=== PATIENT | male | born 1985 | race Caucasian/White ===

== ENCOUNTER → 2021-08-23 09:37 | Outpatient (CLI) | payer OTHER, SELFPAY ==
[2021-08-23 11:53] LABS: COVID19 -Nasal RAPID POSITIVE (Negative)
== END ==
PROVIDERS: PCP Internal Medicine; Visit Provider Nurse Practitioner
DX: U07.1 COVID-19 (principal)
CPT/HCPCS: 87635

== ENCOUNTER 2022-05-25 17:08 | Emergency (ER) | payer OTHER, SELFPAY ==
[2022-05-25 17:11] VITALS: BP 155/84; PULSE 63; RESP 18; TEMP 35.9; O2SAT 100; BMI 31.4
== END 2022-05-25 17:44 | disposition left against medical advice (07) ==
PROVIDERS: Emergency Provider Family Medicine Addiction Medicine; PCP Internal Medicine
CPT/HCPCS: 99281

== ENCOUNTER 2022-12-26 08:58 | Emergency (ER) | payer OTHER, SELFPAY ==
[2022-12-26 09:22] VITALS: BP 168/84; PULSE 71; RESP 19; TEMP 36.2; O2SAT 99; BMI 32.1
[2022-12-26 09:38] LABS: Basophils Absolute Auto 0 /uL (0-100); Eosinophils Absolute Auto 100 /uL (0-450); Eosinophils Percent Auto 2.1 % (2-4); Monocytes Absolute Auto 500 /uL (0-900); White Blood Cell Count 6.5 X10^3/uL (4.5-11.0)
[2022-12-26 09:47] LABS: Add Manual Diff / Slide Review NO; Basophils Percent Auto 0.5 % (0-2); Hematocrit 42.8 % (41-53); Hemoglobin 15.3 g/dL (13.5-17.5); Lymphocytes Absolute Auto 1500 /uL (1100-4500); Lymphocytes Percent Auto 22.5 % (25-40); Mean Corpuscular HGB Conc 35.8 % (30-36); Mean Corpuscular Hemoglobin 30.3 PG (26-34); Mean Corpuscular Volume 84.7 fL (80-100); Neutrophils Absolute Auto 4300 /uL (1500-7000); Neutrophils Percent Auto 66.9 % (50-75); Platelet Count 129 X10^3/uL (150-400); Red Blood Cell Count 5.06 X10^6/uL (4.5-5.9); Red Cell Distribution Width 13.1 % (11.6-14.8)
[2022-12-26 09:48] LABS: INR 1.1 (0.9-1.3); Prothrombin Time 12.3 SECONDS (10.1-12.7)
--- NOTE | 2022-12-26 09:50 | PC.NURSE ---
Reports intermittent blood streaked stools and blood in toilet since . Blood is increasing in amount. Denies dizziness, nausea or pain.
[2022-12-26 09:51] LABS: PTT Partial Thromboplastin Tim 33 SECONDS (26-36)
[2022-12-26 10:01] LABS: Alanine Aminotransferase 41 IU/L (<50); Albumin 4.3 g/dL (3.5-5.0); Albumin Globulin Ratio 1.2 (1.0-2.8); Alkaline Phosphatase 51 U/L (38-126); Aspartate Aminotransferase 35 IU/L (17-59); Blood Urea Nitrogen 12 mg/dL (9-20); Calcium 9.2 mg/dL (8.4-10.2); Carbon Dioxide 30 mmol/L (22-32); Chloride 102 mmol/L (98-107); Estimated Glomerular Filt Rate > 60 mL/min (>60); Globulin 3.6 g/dL (1.7-4.1); Glucose 90 mg/dL (70-100); HEMOLYSIS < 15 (0-50); Potassium 3.9 mmol/L (3.4-5.1); Sodium 140 mmol/L (137-145); Total Protein 7.9 g/dL (6.3-8.2)
[2022-12-26 10:19] VITALS: BP 129/78; PULSE 60; RESP 16; O2SAT 99
[2022-12-26 10:26] VITALS: PULSE 61; RESP 19; O2SAT 99
[2022-12-26 10:30] VITALS: BP 136/79; PULSE 63; RESP 13; O2SAT 99
--- NOTE | 2022-12-26 10:43 | ED_ITS ---
HPI - GI Bleed General Chief complaint: GI Bleed Stated complaint: blood in stool T-90 Time Seen by Provider: 12/26/22 10:43 Source: patient Mode of arrival: Ambulatory Limitations: no limitations History of Present Illness HPI Narrative: This is a 37-year-old male who takes no daily medications, denies prior surge mike. No known drug allergies with concern for rectal bleeding which he states it has been going on for a couple months. Patient states he is noticed bright red blood is not with every bowel movement but is frequent. It has been coming frequent and started to notice larger amounts sometimes when he wipes sometimes mixed in with stool. Does not know if he seen any clots. Has not had any lightheadedness, no chest pain, no shortness of breath, no abdominal back or flank pain. He states had some hemorrhoids and rectal pain in the past but isn't currently. He states his stools are typically soft slightly formed. He is not having frequent diarrhea he is not complaining of any hard stools. Patient denies any daily medications. No blood thinners. He has never had a colonoscopy he notes his siblings have also told him they have had some rectal bleeding and IBS type symptoms. He states they have never had a colonoscopy either. Patient denies tobacco, alcohol occasionally, no illicit. He is reestablishing with primary care Dr. Díaz. Related Data Allergies Allergy/AdvReac Type Severity Reaction Status Date / Time No Known Drug Allergies Allergy Unknown Unverified 03/10/18 12:19 Review of Systems Review of Systems ROS Unobtainable: All systems reviewed & are unremarkable except as noted in HPI and below Patient History Social History Smoking Status: Never smoker Smoking Status: Never smoker alcohol intake frequency: holidays/special occasions only Substance Use Type: does not use Exam Narrative Exam Narrative: GENERAL: Alert and oriented x three, male in mild distress. HEENT: Head normocephalic, atraumatic, EOMI, pupils reactive, face symmetric, moist mucous membranes NECK: Supple, full range of motion CARDIOVASCULAR: Regular rate and rhythm without murmurs, rubs or gallops. RESPIRATORY: Breath sounds equal bilaterally, no wheezes rales or rhonchi. ABDOMEN: Soft, nontender. Normoactive bowel sounds all 4 quadrants. No guarding or rebound, rigidity, no mass, patient has small external hemorrhoid, patient does have some fullness at the rectum but no mass easily palpated.. No large stool sample no bright red blood but stool occult was positive. : No CVA tenderness EXTREMITIES: Normal range of motion, no clubbing or edema. Neurovascularly intact NEUROLOGICAL: Cranial nerves II through XII grossly intact. Moving all extremities SKIN: Warm, dry, no petechiae, no rashes or lesions. Initial Vital Signs Initial Vital Signs: Vital Signs Temperature 97.2 F L 12/26/22 09:22 Pulse Rate 71 12/26/22 09:22 Respiratory Rate 19 12/26/22 09:22 Blood Pressure 168/84 H 12/26/22 09:22 Pulse Oximetry 99 12/26/22 09:22 Oxygen Delivery Method 12/26/22 09:22 Course Orders Ordered: Discontinued Medications Ondansetron HCl (Ondansetron 4 Mg/2 Ml Inj) 4 mg IV NOW PRN PRN Reason: Nausea And Vomiting Ondansetron HCl (Ondansetron 4 Mg Odt) 4 mg SL NOW PRN PRN Reason: Nausea And Vomiting Pantoprazole Sodium (Pantoprazole 40 Mg Vial) 80 mg IV NOW ONE Stop: 12/26/22 09:22 Last Admin: 12/26/22 11:41 Dose: Not Given Documented By: RB Vital Signs Vital signs: Vital Signs - 8 hr 12/26/22 11:30 12/26/22 11:31 12/26/22 11:31 Pulse Rate 65 63 Respiratory Rate 13 15 Blood Pressure 150/92 H Pulse Oximetry 100 100 MDM - GI Bleed Lab Data 12/26/22 09:20 12/26/22 09:20 Labs: Lab Results 12/26/22 12/26/22 12/26/22 Range/Units 09:20 09:20 09:20 WBC 6.5 (4.5-11.0) X10^3/uL RBC 5.06 (4.5-5.9) X10^6/uL Hgb 15.3 (13.5-17.5) g/dL Hct 42.8 (41-53) % MCV 84.7 (80-100) fL MCH 30.3 (26-34) PG MCHC 35.8 (30-36) % RDW 13.1 (11.6-14.8) % Plt Count 129 L (150-400) X10^3/uL Neut % (Auto) 66.9 (50-75) % Lymph % (Auto) 22.5 L (25-40) % [place] % (Auto) 8.0 (3-14) % Eos % (Auto) 2.1 (2-4) % Baso % (Auto) 0.5 (0-2) % Neut # (Auto) 4300 (1041-5686) /uL Lymph # (Auto) 1500 (7101-6316) /uL [place] # (Auto) 500 (0-900) /uL Eos # (Auto) 100 (0-450) /uL Baso # (Auto) 0 (0-100) /uL PT 12.3 (10.1-12.7) SECONDS INR 1.1 (0.9-1.3) APTT 33 (26-36) SECONDS Sodium 140 (137-145) mmol/L Potassium 3.9 (3.4-5.1) mmol/L Chloride 102 (98-107) mmol/L Carbon Dioxide 30 (22-32) mmol/L BUN 12 (9-20) mg/dL Creatinine 1.00 (0.66-1.25) mg/dL Estimated GFR > 60 (>60) mL/min BUN/Creatinine Ratio 12.0 (6-22) Glucose 90 (70-100) mg/dL Calcium 9.2 (8.4-10.2) mg/dL Total Bilirubin 3.0 H (0.2-1.3) mg/dL AST 35 (17-59) IU/L ALT 41 (<50) IU/L Alkaline Phosphatase 51 (38-126) U/L Total Protein 7.9 (6.3-8.2) g/dL Albumin 4.3 (3.5-5.0) g/dL Globulin 3.6 (1.7-4.1) g/dL Albumin/Globulin Ratio 1.2 (1.0-2.8) Blood Type Antibody Screen 12/26/22 Range/Units 09:20 WBC (4.5-11.0) X10^3/uL RBC (4.5-5.9) X10^6/uL Hgb (13.5-17.5) g/dL Hct (41-53) % MCV (80-100) fL MCH (26-34) PG MCHC (30-36) % RDW (11.6-14.8) % Plt Count (150-400) X10^3/uL Neut % (Auto) (50-75) % Lymph % (Auto) (25-40) % [place] % (Auto) (3-14) % Eos % (Auto) (2-4) % Baso % (Auto) (0-2) % Neut # (Auto) (8708-2530) /uL Lymph # (Auto) (8734-6934) /uL [place] # (Auto) (0-900) /uL Eos # (Auto) (0-450) /uL Baso # (Auto) (0-100) /uL PT (10.1-12.7) SECONDS INR (0.9-1.3) APTT (26-36) SECONDS Sodium (137-145) mmol/L Potassium (3.4-5.1) mmol/L Chloride (98-107) mmol/L Carbon Dioxide (22-32) mmol/L BUN (9-20) mg/dL Creatinine (0.66-1.25) mg/dL Estimated GFR (>60) mL/min BUN/Creatinine Ratio (6-22) Glucose (70-100) mg/dL Calcium (8.4-10.2) mg/dL Total Bilirubin (0.2-1.3) mg/dL AST (17-59) IU/L ALT (<50) IU/L Alkaline Phosphatase (38-126) U/L Total Protein (6.3-8.2) g/dL Albumin (3.5-5.0) g/dL Globulin (1.7-4.1) g/dL Albumin/Globulin Ratio (1.0-2.8) Blood Type A Positive Antibody Screen Negative Point of Care Testing Stool Occult Blood Positive Urine Dip Bedside Urine Glucose Negative Bedside Urine Bilirubin - Negative Bedside Urine Ketone - Negative Urine Specific [place] 1.025 Bedside Urine Occult Blood - Negative Bedside Urine pH 6 Bedside Urine Protein - Negative Bedside Urine Urobilinogen - Negative Bedside Urine Nitrite - Negative Bedside Urine Leukocytes - Negative Esterase MDM Narrative Medical decision making narrative: This is a 37-year-old male who comes with complaint of rectal bleeding patient states been going on for several months some increasing frequency no large clots. No other systemic symptoms. No abdominal pain no active rectal pain but has had hemorrhoidal type pain in the past. Small external hemorrhoid it is not actively bleeding it is nontender. There is a little bit of fullness in the rectum. His stool occult was positive there was no bright red blood on exam but sample was small. Patient labs are otherwise appropriate. Discussed with patient he needs follow-up for colonoscopy to further evaluate particularly with his family history. Referral was given for either General surgery or Gastroenterology, we discussed return precautions. Patient is hemodynamically stable. Discharge Plan Departure Patient Disposition: Home Clinical Impression: Rectal bleeding Instructions: DI for Rectal Bleeding Activity Restrictions/Additional Instructions: You do have a small hemorrhoid on exam this might be the source of her bleeding but you need a colonoscopy to check for other causes. Please call to follow up either with General surgery or a communications representative, to set this up. Referral is included below call today were Thursday morning to set up follow-up. You can use topical [id number] treatments for hemorrhoids, make sure you are using a stool softener if your stools are hard or not soft and regular. Please return for new abdominal pain, persistent rectal bleeding with lightheadedness, passing out, new chest pain, shortness of breath, if you are having increasing bleeding that is concerning to you or other new or concerning changes. Referrals: Drew Marin MD [Physician] - Hemant Saldana MD [Physician] - Sky Díaz DO [Primary Care Provider] - Stand Alone Forms: Patient Portal/API
[2022-12-26 11:30] VITALS: PULSE 65; RESP 13; O2SAT 100
[2022-12-26 11:31] VITALS: BP 150/92; PULSE 63; RESP 15; O2SAT 100
== END 2022-12-26 12:01 | disposition home or self-care (01) ==
PROVIDERS: Emergency Provider Emergency Medicine; PCP Family Medicine
DX: K62.5 Hemorrhage of anus and rectum (principal)
CPT/HCPCS: 36415; 80053; 81003; 82272; 85025; 85610; 85730; 86850; 86900; 86901; 99283

== ENCOUNTER 2023-01-20 13:15 | Day surgery (SDC) | payer OTHER, SELFPAY ==
[2023-01-20 13:28] VITALS: BMI 45.7
[2023-01-20 13:35] VITALS: BP 133/80; PULSE 78; RESP 12; TEMP 36.3; O2SAT 100
[2023-01-20] MEDS: LACTATED RINGERS 1,000 ML 200 ML IV (13:47)
--- NOTE | 2023-01-20 15:00 | PM.PREOP ---
Pre-operative Note Interval Note History & Physical reviewed/Exam performed by Physician: Yes Changes to H&P: No
[2023-01-20 15:29] VITALS: BP 123/58; PULSE 68; RESP 16; TEMP 36.4; O2SAT 98
[2023-01-20 15:36] VITALS: BP 107/59; PULSE 69; RESP 18; O2SAT 99
--- NOTE | 2023-01-20 15:41 | P.OP.COLON_ITS ---
Operative Date/Time/Diagnoses Date of procedure: 01/20/23 Time of procedure: 15:41 Pre-op diagnosis: Rectal bleeding Post-op diagnosis: other (Internal hemorrhoids) Procedure & Clinicians Study performed: Colonoscopy and banding of hemorrhoids x2 Same procedure as scheduled: Yes Indications: Rectal bleeding here for colonoscopy and possible hemorrhoidal banding Surgeon: Hemant Saldana Procedure Notes Procedure in detail: The history and physical was performed/updated and the patient is ASA class is 1 The procedure was discussed in detail with the patient. Potential risks complications including infection, bleeding, missed diagnosis, perforation, need for surgery, and were explained. Their questions were answered and informed consent was obtained. Patient was brought to the procedure room and placed standard monitoring equi pment. The patient's vital signs were monitored continuously throughout the entire procedure. Prior to starting time-out was performed. The patient was placed in the left lateral recumbent position. Procedural sedation was administered by anesthesia. Examination began with a thorough inspection of the perianal area there was no evidence of fissures, fistulae, external hemorrhoids or cutaneous malignancy. The colonoscopy scope was then placed into the anal canal and was advanced to the cecum, which was identified by the ileocecal valve, the appendiceal orifice and the confluence of the taenia. The scope was then slowly withdrawn examining colon thoroughly in all directions, irrigating it of any residual stool. There were no masses polyps or inflammation within the colon. Retroflexion within the rectum demonstrated grade 2 internal hemorrhoids. The hemorrhoid pedicles on the left lateral and right posterior were grasped with suction and then doubly ligated at their base. He tolerated the procedure well. They will be discharged once criteria are met. The prep was of good/excellent quality. The withdrawl time was 8 minutes. Specimen(s): none sent Complications: none Impression: Internal hemorrhoids Post-procedure Recommendations: High fiber diet Disposition: same day surgery
== END 2023-01-20 15:41 | disposition home or self-care (01) ==
PROVIDERS: PCP Family Medicine; Referring Provider Surgery; Visit Provider Surgery
PROC: 0DJD8ZZ Inspection of Lower Intestinal Tract, Via Natural or Artificial Opening Endoscopic (ICD-10-PCS; CPT 45378; principal; 2023-01-20 14:15)
DX: K64.1 Second degree hemorrhoids (principal)
CPT/HCPCS: 45398; J2704; J3010

== ENCOUNTER 2023-05-02 21:44 | Observation (INO) | payer OTHER, SELFPAY ==
[2023-05-02 21:46] VITALS: BP 149/84; PULSE 60; RESP 16; TEMP 36.2; O2SAT 100; BMI 33.0
--- NOTE | 2023-05-02 22:02 | DI.US.S_ITS ---
PROCEDURE: US ABDOMEN LIMITED INDICATIONS: RUQ pain TECHNIQUE: Real-time focused scanning was performed of the abdomen, with image documentation. COMPARISON: None. FINDINGS: The liver is normal in size and echotexture. The gallbladder demonstrates internal calculi measuring up to 1.2 cm, several. There also is a 1.2 cm gallstone lodged in the gallbladder neck with tenderness during sonographic palpation over the gallbladder. No adjacent free fluid is found. Bile ducts are mildly prominent with the common bile duct measuring up to 5.3 mm. IMPRESSION: 1.2 cm gallstone lodged within the gallbladder neck, but with normal gallbladder wall thickness and no evidence of intrahepatic biliary distension. The extrahepatic common bile duct is mildly prominent at 5.3 mm. Dictated by: Robin Dhaliwal M.D. on 05/02/2023 at 23:37 Approved by: Robin Dhaliwal M.D. on 05/02/2023 at 23:39
--- NOTE | 2023-05-02 22:02 | ED.ABDPAIN ---
HPI - Abdominal Pain General Chief Complaint: Abdominal Pain Stated Complaint: ABD pain Time Seen by Provider: 05/02/23 21:48 Source: patient Mode of arrival: Ambulatory History of Present Illness HPI narrative: 37-year-old male nonsmoker with noncontributory chronic medical history presents with a chief complaint of severe right upper quadrant pain soon after eating this evening. He states that it does radiate to his back and was associated with multiple episodes of nausea and vomiting. He is had no fever or chills and denies any yellowish tint to his skin or profound itching. He states he is had episodes similar to this a few times over the past few years but denies that it is ever been quite as severe or persistent. Related Data Home Medications Medication Instructions Recorded Confirmed No Known Home Medications 05/03/23 05/03/23 Allergies Allergy/AdvReac Type Severity Reaction Status Date / Time No Known Drug Allergies Allergy Unknown Verified 05/02/23 21:46 Review of Systems Review of Systems Narrative: GENERAL: Denies chills, fatigue, malaise, fever, sweats. HEENT: Denies sinus pain, ear pain, sore throat, difficulty swallowing, dizziness. RESPIRATORY: Denies dyspnea, cough, wheezing, hemoptysis, sputum. CARDIOVASCULAR: Denies chest pain, palpitations, orthopnea, edema, GASTROINTESTINAL: See HPI : Denies dysuria, frequency, incontinence, hematuria, urinary retention. MUSCULOSKELETAL: denies weakness, joint pain, or bony pain SKIN: Denies rash, skin lesions, or other NEUROLOGIC: Denies weakness, headache, numbness, change in speech, confusion, seizures, incoordination. PSYCHIATRIC: No concerning psychosocial issues. 12 point review of systems is negative except for those stated above Patient History Surgical History H/O removal of cyst Family History Father Hypertension Diabetes mellitus Brother Heart disease Sister Gallstones Grandfather Cancer Social History marital status: household members: spouse and children lives independently: Yes occupational status: employed Smoking Status: Never smoker alcohol intake: current substance use type: does not use Smoking Status: Never smoker alcohol intake frequency: holidays/special occasions only Substance Use Type: does not use Exam Narrative Exam Narrative: 37] year old patient appears stated age. Well-developed patient, in moderate distress, obviously in pain, holding an emesis bag HEAD: Atraumatic. Normocephalic. EYES: Pupils equal round and reactive. Extraocular motions intact. No scleral icterus. No injection or drainage. ENT: Nose without bleeding, purulent drainage. Throat without erythema, tonsillar hypertrophy or exudate. Airway patent. NECK: Trachea midline. Non tender CARDIOVASCULAR: Regular rate and rhythm without murmurs, gallops, or rubs. RESPIRATORY: Clear to auscultation. Breath sounds equal bilaterally. No wheezes, rales, or rhonchi. GASTROINTESTINAL: Abdomen soft, tender in the right upper quadrant with positive Palma's sign EXTREMITIES: No edema or joint tenderness. BACK: Nontender without deformity or crepitance. No flank tenderness. NEURO: AOx3. SKIN: No rash or erythema of visible areas Initial Vital Signs Initial Vital Signs: Vital Signs Temperature 97.2 F L 05/02/23 21:46 Pulse Rate 60 05/02/23 21:46 Respiratory Rate 16 05/02/23 21:46 Blood Pressure 149/84 H 05/02/23 21:46 Pulse Oximetry 100 05/02/23 21:46 Oxygen Delivery Method Room Air 05/02/23 21:46 Course Orders Ordered: ED Orders 05/02/23 22:00 Complete Blood Count AUTO DIFF Stat Comprehensive Metabolic Panel Stat Lipase Stat 05/02/23 22:02 US abdomen limited Stat Ondansetron HCl (Ondansetron 4 Mg Odt) 4 mg PO NOW PRN PRN Reason: Nausea And Vomiting Ondansetron HCl (Ondansetron 4 Mg/2 Ml Inj) 4 mg IV NOW PRN PRN Reason: Nausea And Vomiting Last Admin: 05/02/23 22:12 Dose: 4 mg Documented By: STEPHANIE Discontinued Medications Hydromorphone HCl (Hydromorphone 0.5 Mg Inj) 0.5 mg IV NOW ONE Stop: 05/02/23 22:06 Last Admin: 05/02/23 22:21 Dose: 0.5 mg Documented By: STEPHANIE Sodium Chloride (Normal Saline 0.9%) 1,000 mls @ 1,000 mls/hr IV BOLUS ONE Stop: 05/02/23 23:04 Last Infusion: 05/02/23 23:20 Dose: 0 mls/hr Documented By: Admin: 05/02/23 22:20 Dose: 1,000 mls/hr Documented By: STEPHANIE Ondansetron HCl (Ondansetron 4 Mg/2 Ml Inj) 4 mg IV NOW ONE Stop: 05/02/23 22:06 Last Admin: 05/02/23 23:54 Dose: Not Given Documented By: STEPHANIE Pantoprazole Sodium (Pantoprazole 40 Mg Vial) 40 mg IV NOW ONE Stop: 05/02/23 22:06 Last Admin: 05/02/23 22:21 Dose: 40 mg Documented By: STEPHANIE Reevaluation(s) Reevaluation #1: Pain returning after 1st dose of Dilaudid had been helpful for an hour or so Consultations Consultation #1: Discussed with on-call surgeon, Dr. Ruby thus, she will happily admit patient onto her service and follow closely, likely a surgical candidate but the next 24 hours will be telling Vital Signs Vital signs: Vital Signs - 8 hr 05/02/23 21:46 Temperature 97.2 F L Pulse Rate 60 Respiratory Rate 16 Blood Pressure 149/84 H Pulse Oximetry 100 Oxygen Delivery Method Room Air MDM - Abdominal Pain Lab Data 05/02/23 22:00 05/02/23 22:00 Labs: Lab Results 05/02/23 05/02/23 Range/Units 22:00 22:00 WBC 7.7 (4.5-11.0) X10^3/uL RBC 4.97 (4.5-5.9) X10^6/uL Hgb 15.2 (13.5-17.5) g/dL Hct 42.8 (41-53) % MCV 86.2 (80-100) fL MCH 30.6 (26-34) PG MCHC 35.5 (30-36) % RDW 13.2 (11.6-14.8) % Plt Count 159 (150-400) X10^3/uL Neut % (Auto) 57.3 (50-75) % Lymph % (Auto) 31.7 (25-40) % [place] % (Auto) 9.2 (3-14) % Eos % (Auto) 1.2 L (2-4) % Baso % (Auto) 0.6 (0-2) % Neut # (Auto) 4400 (9193-9030) /uL Lymph # (Auto) 2400 (9253-9483) /uL [place] # (Auto) 700 (0-900) /uL Eos # (Auto) 100 (0-450) /uL Baso # (Auto) 0 (0-100) /uL Sodium 138 (137-145) mmol/L Potassium 4.3 (3.4-5.1) mmol/L Chloride 100 (98-107) mmol/L Carbon Dioxide 31 (22-32) mmol/L BUN 14 (9-20) mg/dL Creatinine 1.10 (0.66-1.25) mg/dL Estimated GFR > 60 (>60) mL/min BUN/Creatinine Ratio 12.7 (6-22) Glucose 94 (70-100) mg/dL Calcium 9.1 (8.4-10.2) mg/dL Total Bilirubin 3.7 H (0.2-1.3) mg/dL AST 91 H (17-59) IU/L ALT 57 H (<50) IU/L Alkaline Phosphatase 49 (38-126) U/L Total Protein 7.9 (6.3-8.2) g/dL Albumin 4.8 (3.5-5.0) g/dL Globulin 3.1 (1.7-4.1) g/dL Albumin/Globulin Ratio 1.5 (1.0-2.8) Lipase 86 (23-300) U/L Point of care testing: Urine Dip Bedside Urine Glucose Negative Bedside Urine Bilirubin - Negative Bedside Urine Ketone +/- 5 Urine Specific [place] 1.030 Bedside Urine Occult Blood - Negative Bedside Urine pH 6 Bedside Urine Protein - Negative Bedside Urine Urobilinogen - Negative Bedside Urine Nitrite - Negative Bedside Urine Leukocytes - Negative Esterase MDM Narrative Medical decision making narrative: 37-year-old male with presentation of right upper quadrant pain after eating has elevated bilirubin, LFTs and requires repeat doses of pain medication to help control his pain. Ultrasound shows nonmobile gallstones in the neck of the gallbladder. Patient will be admitted and followed closely, likely to be a surgical candidate. I did discuss with the patient that it is not guarantee that he would require surgery and they will follow labs and response to therapies. Patient understands and agrees with the diagnosis and plan Discharge Plan Departure Patient Disposition: Admitted as Observation Clinical Impression: Gall bladder stones Admit Date/Time: 05/02/23 23:31 Admit Provider: Michelle Schuster
[2023-05-02 22:07] LABS: Add Manual Diff / Slide Review NO; Basophils Absolute Auto 0 /uL (0-100); Basophils Percent Auto 0.6 % (0-2); Eosinophils Absolute Auto 100 /uL (0-450); Eosinophils Percent Auto 1.2 % (2-4); Hematocrit 42.8 % (41-53); Hemoglobin 15.2 g/dL (13.5-17.5); Lymphocytes Absolute Auto 2400 /uL (1100-4500); Lymphocytes Percent Auto 31.7 % (25-40); Mean Corpuscular HGB Conc 35.5 % (30-36); Mean Corpuscular Hemoglobin 30.6 PG (26-34); Mean Corpuscular Volume 86.2 fL (80-100); Monocytes Absolute Auto 700 /uL (0-900); Monocytes Percent Auto 9.2 % (3-14); Neutrophils Absolute Auto 4400 /uL (1500-7000); Neutrophils Percent Auto 57.3 % (50-75); Platelet Count 159 X10^3/uL (150-400); Red Blood Cell Count 4.97 X10^6/uL (4.5-5.9); Red Cell Distribution Width 13.2 % (11.6-14.8); White Blood Cell Count 7.7 X10^3/uL (4.5-11.0)
[2023-05-02] MEDS: ONDANSETRON 4 MG/2 ML INJ IV (22:12)
[2023-05-02 22:16] LABS: Alanine Aminotransferase 57 IU/L (<50); Albumin 4.8 g/dL (3.5-5.0); Albumin Globulin Ratio 1.5 (1.0-2.8); Alkaline Phosphatase 49 U/L (38-126); Aspartate Aminotransferase 91 IU/L (17-59); BUN Creatinine Ratio 12.7 (6-22); Bilirubin Total 3.7 mg/dL (0.2-1.3); Blood Urea Nitrogen 14 mg/dL (9-20); Calcium 9.1 mg/dL (8.4-10.2); Carbon Dioxide 31 mmol/L (22-32); Chloride 100 mmol/L (98-107); Estimated Glomerular Filt Rate > 60 mL/min (>60); Globulin 3.1 g/dL (1.7-4.1); Glucose 94 mg/dL (70-100); HEMOLYSIS 16 (0-50); Lipase 86 U/L (23-300); Potassium 4.3 mmol/L (3.4-5.1); Sodium 138 mmol/L (137-145); Total Protein 7.9 g/dL (6.3-8.2)
[2023-05-02] MEDS: SODIUM CHLORIDE 0.9% 1,000 ML 1000 ML IV (22:20)
[2023-05-02] MEDS: HYDROMORPHONE 0.5 MG INJ IV (22:21)
[2023-05-02] MEDS: PANTOPRAZOLE 40 MG VIAL IV (22:21)
[2023-05-02 23:34] VITALS: PULSE 71; O2SAT 100
[2023-05-02 23:35] VITALS: BP 157/70; PULSE 66; O2SAT 100
[2023-05-03] VITALS (15 sets, daily range): BP systolic 132–159; BP diastolic 73–88; PULSE 61–88; RESP 11–18; TEMP 36.1–36.6; O2SAT 95–100; BMI 33.0
--- NOTE | 2023-05-03 | PATH_ITS ---
[facility] [place] Accession Number: [id number] No. of containers..01 Tissue . 01 Material submitted: . gallbladder - GALLBLADDER . 01 Diagnosis: Gallbladder, Cholecystectomy: Acute on chronic cholecystitis and cholelithiasis. [facility] 05/07/2023 1136 Local . 01 Electronically signed: . Natalie Cuellar MD, Pathologist NPI- [id number] . 01 Gross description: . The specimen is received in formalin labeled with the patient's name, , and gallbladder consists of an intact gallbladder measuring 7.3 x 2.7 x 2.5 cm with an unremarkable external surface. The cystic duct is received closed with a clamp, is inked blue, and no pericystic lymph node is identified. The lumen contains multiple black faceted calculi measuring up to 1.6 cm in greatest dimension grossly obstructing the cystic duct admixed with dark green viscous bile. The mucosa is dark green and velvety with no discoloration, polyps, or lesions identified, and the gordon average 0.2 cm thick. Volunteer Services Director sections to include the cystic duct margin and full thickness sections are submitted in cassette A1. ([id number]) /MRV 05/05/2023 1420 Local . 01 Pathologist provided ICD-10: K81.1, K81.2, K80.00 . 01 CPT . 096080 Specimen Comment: A courtesy copy of this report has been sent to [facility] Pathology Performed at: 01 [facility] [address] [place] [address] [id number] MD Lance Blood MD Phone: [phone]
[2023-05-03] MEDS: SODIUM CHLORIDE 0.9% 1,000 ML 125 ML IV (03:10)
[2023-05-03] MEDS: HYDROMORPHONE 0.5 MG INJ IV (06:00)
--- NOTE | 2023-05-03 08:09 | P.HP_ITS ---
History of Present Illness History of Present Illness Date Patient Seen: 05/03/23 Time Patient Seen: 08:09 Chief complaint: ABD pain Narrative: Mr. Young presented to the ER last night severe right abdominal pain. States that for the last year or 2 he has been having some similar episodes that were not as severe. These episodes would often come on half an hour or an hour after eating and feels severe but generally subsided in about 20 minutes or so. At 1s t he thought it was just gas or some other generic abdominal pain. He has not noticed any particular types of food that seemed to set off the pain and at times he also noted that it the pain would come on seemingly without having eaten anything. Does not report that it woke him up at night. Last meal he had before the pain began this time was a meal of refried beans tortillas and cheese? It has happened after he ate a hamburger another time, he recalls. He has had an episode few months ago where the pain was severe enough and lasted long enough that he decided to come to the emergency room but as he was in the waiting room all the pain subsided and so he left. This time the pain was de finitely the worst it is ever been and lasted the longest. This morning he is feeling a little bit better, hungry. He did have nausea and vomiting with this episode but does not generally have that. He has a brother and sister with gallbladder issues but they have not had cholecystectomies. He relays that he had his history of what he thought was irritable bowel syndrome. He is otherwise healthy takes no medications other than vitamins and has never had surgery before. He has no known drug allergies. [facility] Surgical History H/O removal of cyst Family History Father Hypertension Diabetes mellitus Brother Heart disease Sister Gallstones Grandfather Cancer Social History marital status: household members: spouse and children lives independently: Yes occupational status: employed Smoking Status: Never smoker alcohol intake: current substance use type: does not use Meds Home Medications and Allergies Home Medications Medication Instructions Recorded Confirmed Type No Known Home Medications 05/03/23 05/03/23 History docusate sodium 100 mg capsule 100 mg PO BID #30 caps 05/03/23 Rx hydrocodone 5 mg-acetaminophen 325 2 tab PO Q6H PRN pain #30 tabs 05/03/23 Rx mg tablet ibuprofen 600 mg tablet 800 mg PO Q6H #30 tabs 05/03/23 Rx Allergies Allergy/AdvReac Type Severity Reaction Status Date / Time No Known Drug Allergies Allergy Unknown Verified 05/02/23 21:46 Exam Vital Signs (past 8 hours): - 05/03/23 00:30 05/03/23 01:15 Temperature 97.8 F Pulse Rate 83 Respiratory Rate 18 Blood Pressure 144/78 H Pulse Oximetry 96 Oxygen Delivery Method Room Air Oxygen Flow Rate 0 Oxygen Delivery Method Room Air Oxygen Flow Rate 0 Const General: cooperative, healthy appearing and comfortable Nutritional Appearance: well nourished HENMT Head: normal to inspection Mouth: moist mucous membranes Eyes Sclera: scleral abnormality (mild icterus) bilaterally Resp Effort & Inspection: normal respiratory effort and able to speak in complete sentences Cardio Pulses: radial pulses present GI Palpation: soft and tender (Mild right upper quadrant epigastric tenderness to palpation) Skin General: no rashes or lesions noted Extrem General: normal to inspection Objective Labs 05/02/23 22:00 05/02/23 22:00 Labs: Laboratory Results - last 24 hr 05/02/23 05/02/23 22:00 22:00 WBC 7.7 RBC 4.97 Hgb 15.2 Hct 42.8 MCV 86.2 MCH 30.6 MCHC 35.5 RDW 13.2 Plt Count 159 Neut % (Auto) 57.3 Lymph % (Auto) 31.7 [place] % (Auto) 9.2 Eos % (Auto) 1.2 L Baso % (Auto) 0.6 Neut # (Auto) 4400 Lymph # (Auto) 2400 [place] # (Auto) 700 Eos # (Auto) 100 Baso # (Auto) 0 Sodium 138 Potassium 4.3 Chloride 100 Carbon Dioxide 31 BUN 14 Creatinine 1.10 Estimated GFR > 60 BUN/Creatinine Ratio 12.7 Glucose 94 Calcium 9.1 Total Bilirubin 3.7 H AST 91 H ALT 57 H Alkaline Phosphatase 49 Total Protein 7.9 Albumin 4.8 Globulin 3.1 Albumin/Globulin Ratio 1.5 Lipase 86 Assessment & Plan Assessment and plan (1) Acute cholecystitis with chronic cholecystitis: Status: Acute (2) Gall bladder stones: Status: Acute (3) Benign unconjugated hyperbilirubinemia: Status: Acute Assessment & Plan narrative: This morning I have rechecked his bilirubin it was 3.7 in the emergency room. I ordered a hepatic panel and found that his conjugated bilirubin is 0. When I mentioned the diagnosis of Gilbert's disease he said that somebody else has mentioned that to him and it sounded familiar. I explained that the unconjugated hyperbilirubinemia usually does not indicate that any common bile duct stone is present. I discussed with him at length the physiology of gallbladder hours and what the options are for common bile duct stones. He understands this. I also discussed with him that the only way to prevent this from happening again is to proceed with a cholecystectomy. I gave him the standard information about the procedure the risks benefits alternatives and the expected standard recovery. Including but not limited to injury to the common bile duct injury to other structures bleeding need for further procedures hospitalizations or operations in the rare case of a complication that is serious. I also discussed with him diarrhea postoperatively generally resolves but in rare cases may persist as well. He understands these risks and would like to proceed with surgery. Quality VTE Deep Vein Thrombosis/Pulmonary Embolism Present on Admission: No
[2023-05-03 08:57] LABS: Alanine Aminotransferase 111 IU/L (<50); Albumin 3.9 g/dL (3.5-5.0); Albumin Globulin Ratio 1.4 (1.0-2.8); Alkaline Phosphatase 56 U/L (38-126); Aspartate Aminotransferase 109 IU/L (17-59); Bilirubin Total 3.4 mg/dL (0.2-1.3); Bilirubin Unconjugated 3.2 mg/dL (0.0-1.1); Globulin 2.7 g/dL (1.7-4.1); HEMOLYSIS < 15 (0-50); Total Protein 6.6 g/dL (6.3-8.2)
[2023-05-03] MEDS: ACETAMINOPHEN IV 1,000 MG/100 ML VIAL 400 MG IV (10:41)
--- NOTE | 2023-05-03 11:32 | CM.DANOTE ---
DCP: Case received, EMR reviewed and met with patient. Spouse and children in the room. Introduced self and role. Completed DCP assessment based upon information currently available. Patient is a 37 year old male who admitted yesterday evening to the care of the hospitalist/surgical team. PCP: Dr. Díaz. Payer: confirmed: [employer]. Patient came to the hospital via private vehicle secondary to severe right upper quadrant pain after eating. Patient indicated pain was radiating to his back, and multiple episodes of nausea, and vomiting. Ultrasound noted nonmobile gallstones in the neck of the gallbladder. Patient is scheduled for gallbladder surgery today. Met with patient in his room. He is alert and oriented, laying in bed, spouse and two children were in the room. Patient resides here in [place] and is employed at the [employer]. P: Patient is to be having surgery today. Plan is home when deemed medically stable. Malia Lind RN/Silk Trimmer Discharge Planning/Care Management CM Discharge Assessment Start: 05/03/23 11:30 Freq: Status: Active Protocol: Document 05/03/23 11:31 (Rec: 05/03/23 11:32 [id number]) Discharge Planning Assessment Assigned Extermination Inspector Malia Lind RN/Silk Trimmer Advance Directives? No History Provided By Patient,Medical Record Prior Living Arrangements House Household Members spouse,children Type of transporation used prior to Drives own vehicle admit Independent with ADL's Yes Is patient alert and oriented? Yes Caregiver for Another No Barriers to Discharge No Discharge Plan Home Transportation Arrangement Family Referrals Initiated None needed Whiteboard Updated in Patient Room with Yes name and ext. # of Extermination Inspector Review Status In Process Next Review Type Continued Stay Review
--- NOTE | 2023-05-03 13:52 | PC.NURSE ---
Day shift: Patient to OR for gall bladder removal. Has been NPO since 2100 on 05/02. IV tylenol received per MD Rand's order at 1030am. To OR at 1340 with FINANCIAL SERVICE REPRESENTATIVE.
--- NOTE | 2023-05-03 14:21 | PC.NURSE ---
Day shift: Patient returned to the floor with OBSTETRICAL TECH at 1410. Urgent L&D surgery and they are now postponing patient's surgery until tomorrow. Called MD Rand for updated diet orders.
--- NOTE | 2023-05-03 15:11 | PC.NURSE ---
Day shift: WORSHIP DIRECTORSTEPHANIE Patten returned to take patient down to OR. L&D surgery that originally bumped patient's surgery got cancelled. Patient still NPO and salene locked. Went via OR chair with STEPHANIE Patten at 1510.
[2023-05-03] MEDS: LACTATED RINGERS 1,000 ML 42 ML IV ×2 (15:18→16:23)
[2023-05-03] MEDS: CEFAZOLIN 2 GM/100 ML PREMIX 100 ML IV (15:24)
--- NOTE | 2023-05-03 15:54 | SUR.OPER ---
Supine on padded OR bed, head on pillow, safety belt at thigh, left arm padded and tucked at side. Right arm secured on padded arm board <90 degrees abduction. Legs uncrossed. Padded footboard in place. Tape over blanket to secure lower legs.
[2023-05-03] MEDS: BUPIVACAINE 0.25% (PF) VIAL 30 ML INJ (16:17)
[2023-05-03] MEDS: HYDROMORPHONE 2 MG INJ IV ×2 (17:02→17:14)
[2023-05-03] MEDS: ONDANSETRON 4 MG/2 ML INJ IV ×2 (17:03→20:22)
[2023-05-03] MEDS: MEPERIDINE 50 MG/ML INJ 25 MG IV (17:06)
--- NOTE | 2023-05-03 17:13 | P.OP_ITS ---
Operative Date/Time/Diagnoses Date of procedure: 05/03/23 Time of procedure: 17:13 Pre-op diagnosis: Acute cholecystitis Post-op diagnosis: same Procedure & Clinicians Procedure: Laparoscopic cholecystectomy Same procedure as scheduled: Yes Indications: Acute on chronic cholecystitis with obstruction of the cystic duct from stone Surgeon: Michelle Schuster Click Yes if Unassisted: Yes Anesthesia Type: General Operative Notes Findings: Tense gallbladder with stone Specimen(s): other (Gallbladder) Procedure in detail: Patient taken to the operating room and placed supine on the operating room table. Bilateral SCDs were placed and preoperative antibiotics administered. A time-out was performed. General endotracheal anesthesia was induced. The abdomen was prepped and draped in the usual sterile fashion. Local anesthesia was infused above the umbilicus and an 11 blade scalpel was used to incise the skin for a 12 mm port. The incision was carried down through the subcutaneous tissue using electrocautery. The anterior abdominal wall fascia was doubly grasped with a Jarad retractor and elevated. It was entered sharply using an 11 blade scalpel. Intra-abdominal position was checked with a finger sweep. Two 0 Vicryl stay sutures on a UR6 needle were placed and the Jovan trocar was introduced. The abdomen was insufflated and the 530 degree laparoscopic camera was introduced into the abdomen. There was no evidence of trocar or entry injury. Next the accessory trocars were placed under direct visualization after infusing local anesthetic. Three 5 mm ports were placed in the subxiphoid subcostal and lateral positions. A grasper was used to grab the dome of the gallbladder and retract it cephalad, next a grasper was placed at the neck for retraction and a dissection for a critical view was commenced. The electrocautery hook and the Tiffanie dissectors were used for this process. A photograph was obtained of the critical view. The artery was doubly clipped and ligated the cystic duct was clipped twice on the stay side and once on the specimen side and divided. The gallbladder was then removed from the gallbladder fossa using electrocautery. A small rent in the gallbladder and some spillage of bile occurred during this process. Otherwise the gallbladder was removed the liver bed was cauterized for hemostasis. The clips were inspected for security the area was irrigated and suctioned. The gallbladder was removed using an Endo-Catch bag through the umbilical port site. The a bdomen was desufflated the trocars removed and the fascia was closed with the 2 previously placed 0 Vicryl sutures. The skin was closed with interrupted 4-0 Monocryl and dressed with Steri-Strips. Patient tolerated the procedure well and went in good condition to the postoperative care unit. There were no complications and the EBL was minimal. Complications: none Post-operative Condition: stable Disposition: PACU
[2023-05-03] MEDS: OXYCODONE IR 5 MG TABLET PO (17:17)
--- NOTE | 2023-05-03 18:21 | PC.NURSE ---
Day shift: Patient returned to floor after surgery at 1740. Rating pain 3/10, all in R abdomen. VS WNL. 3 small incision sites in abdomen covered with steri-strips. Small amount of drainage from site at belly button. No nausea. Will continue to monitor.
[2023-05-03] MEDS: SODIUM CHLORIDE 0.9% FLUSH 10 ML IV (20:10)
[2023-05-03] MEDS: HYDROCODONE/ACET 5/325 TABLET 1 TAB PO (20:22)
--- NOTE | 2023-05-03 21:25 | PC.NURSE ---
Patient is alert and oriented. Breath sounds CTA with sat of 99% on oxygen at 0.5L/min per NC; reportedly desats when falling asleep so will leave O2 on overnight. HRR. Complained of slight nausea earlier and was medicated with Zofran. Abdominal pain at right lateral lap site so medicated with Vicodin and ice applied. BT hypoactive and has not yet passed flatus. Voided short time ago; 400cc clear chacha. Is able to move himself in bed. Has not been out of bed since return from surgery and declines to do so at this time; instructed to call for assist when wanting to get out of bed. Lap sites x 4 to abdomen with intact dressings; umbilical site has some sanguinous drainage. Bilateral calf SCD's applied. Fall risk score is low.
[2023-05-03] MEDS: IBUPROFEN 600 MG TABLET 800 MG PO (22:03)
[2023-05-04] MEDS: IBUPROFEN 600 MG TABLET 800 MG PO ×2 (03:40→10:04)
[2023-05-04 03:45] VITALS: BP 131/67; PULSE 56; RESP 18; TEMP 36.2; O2SAT 98
[2023-05-04] MEDS: HYDROCODONE/ACET 5/325 TABLET 1 TAB PO (07:52)
[2023-05-04 08:00] VITALS: BP 149/79; PULSE 54; RESP 17; TEMP 36.4; O2SAT 99
[2023-05-04] MEDS: DOCUSATE 100 MG CAPSULE PO (09:10)
[2023-05-04] MEDS: SODIUM CHLORIDE 0.9% FLUSH 10 ML IV (09:10)
--- NOTE | 2023-05-04 10:18 | P.DS_ITS ---
History of Present Illness History of Present Illness Date Patient Seen: 05/04/23 Time Patient Seen: 10:18 Chief complaint: ABD pain Narrative: Mr. Young presented to the ER last night severe right abdominal pain. States that for the last year or 2 he has been having some similar episodes that were not as severe. These episodes would often come on half an hour or an hour after eating and feels severe but generally subsided in about 20 minutes or so. At 1s t he thought it was just gas or some other generic abdominal pain. He has not noticed any particular types of food that seemed to set off the pain and at times he also noted that it the pain would come on seemingly without having eaten anything. Does not report that it woke him up at night. Last meal he had before the pain began this time was a meal of refried beans tortillas and cheese? It has happened after he ate a hamburger another time, he recalls. He has had an episode few months ago where the pain was severe enough and lasted long enough that he decided to come to the emergency room but as he was in the waiting room all the pain subsided and so he left. This time the pain was de finitely the worst it is ever been and lasted the longest. This morning he is feeling a little bit better, hungry. He did have nausea and vomiting with this episode but does not generally have that. He has a brother and sister with gallbladder issues but they have not had cholecystectomies. He relays that he had his history of what he thought was irritable bowel syndrome. He is otherwise healthy takes no medications other than vitamins and has never had surgery before. He has no known drug allergies. Discharge Providers Provider Date of admission: 05/02/23 23:31 Discharge Date: 05/04/23 Primary care physician: Sky Díaz DO Discharge provider: Michelle Schuster MD Summary Hospital Course Discharge Diagnosis: Acute cholecystitis and Gilbert disease. Hospital Course: Patient was admitted through the emergency room and had a total bilirubin of 3.7 but on hospital day 1 a fractionated bilirubin was ordered and it was found that in fact he had unconjugated bilirubinemia and therefore the suspicion of a c ommon bile duct stone was dismissed. I discussed with him risks benefits and alternatives of laparoscopic cholecystectomy and he decided to proceed. The surgery went well and he was discharged home in good condition on postoperative day 1. Status at Discharge Cognitive/behavioral status at discharge: at baseline, oriented Overall status at discharge: patient is progressing back to baseline Time Spent with Patient Time spent: Less than 30 minutes Exam Vital Signs (past 8 hours): - 05/04/23 03:45 05/04/23 03:45 05/04/23 08:00 Temperature 97.2 F L 97.6 F Pulse Rate 56 L 54 L Respiratory Rate 18 17 Blood Pressure 131/67 149/79 H Pulse Oximetry 98 99 Oxygen Delivery Method Nasal Cannula Oxygen Flow Rate 0.5 0.5 0 Oxygen Delivery Method Nasal Cannula Oxygen Flow Rate 0 Const General: cooperative, healthy appearing and comfortable HENMT Head: normal to inspection Eyes General: appearance normal, both eyes and all related structures Resp Effort & Inspection: normal respiratory effort and able to speak in complete sentences GI Other: Abdomen is soft appropriately tender and nondistended. Wounds are clean dry and intact with Steri-Strips in place. Objective Labs 05/02/23 22:00 05/02/23 22:00 PFSH Surgical History H/O removal of cyst Family History Father Hypertension Diabetes mellitus Brother Heart disease Sister Gallstones Grandfather Cancer Social History marital status: household members: spouse and children lives independently: Yes occupational status: employed Smoking Status: Never smoker alcohol intake: current substance use type: does not use Discharge Assessment & Plan Assessment and Plan Assessment: Postoperative day 1 status post lap zulma doing well Plan of Treatment: The standard instructions for postoperative care and follow-up were provided. Discharge Plan Discharge Plan Patient Disposition: Home Discharge orders & Medications Prescriptions: New docusate sodium 100 mg Capsule 100 mg PO BID Qty: 30 0RF Rx Instructions: Take while taking Vicodin for pain to prevent constipation. You may take anything over the counter for constipation that works for you. If it is more than 3-4 days before you have a bowel movement, please call the office [facility]. hydrocodone-acetaminophen 5-325 mg Tablet 2 tab PO Q6H PRN (Reason: pain) Qty: 30 0RF Rx Instructions: May take 1-2 tabs as needed every 6 hours. Alternate with ibuprofen. No Action ibuprofen 800 mg tablet 800 mg PO Q6H Qty: 30 0RF Follow up/Referrals: Michelle Schuster MD [Physician] - (Call office to schedule for follow up in 7- 10 days. ) Sky Díaz, [Primary Care Provider] - Diet/Activity/Treatments Diet: Diet as Tolerated and Regular Skin/Wound/Dressing Care Report to your healthcare provider any signs of infection, such as:: chills, fever, night sweats and increased pain Visit Report/Discharge Packet Instructions: DI for Laparoscopy, DI for Prescription Opioid Use Stand Alone Forms: Patient Portal/API, Stroke Signs & Symptoms Discharge Data Primary Care Provider: Sky Díaz Attending Provider: Michelle Schuster Admit Date/Time: 05/02/23 23:31 Discharges patient from system. Discharge Date/Time: 05/04/23 12:45 Quality VTE Deep Vein Thrombosis/Pulmonary Embolism Present on Admission: No
[2023-05-04] MEDS: HYDROCODONE/ACET 5/325 TABLET 2 TAB PO (10:54)
--- NOTE | 2023-05-04 13:13 | PC.NURSE ---
Day shift: Discharge instructions gone over with patient and patient's spouse. Answered all questions and patient stated understanding. Dressings CDI. VS WNL. Pain adequately controlled with PO vicodin. Patient up out of bed independently ad david. Left via wheelchair with tech Woodrow and spouse.
== END 2023-05-04 12:45 | disposition home or self-care (01) ==
LOC: ED 21:48 → AC 23:32
PROVIDERS: Admitting Provider Surgery; Emergency Provider Emergency Medicine; PCP Family Medicine; Visit Provider Surgery
PROC: 0FT44ZZ Resection of Gallbladder, Percutaneous Endoscopic Approach (ICD-10-PCS; CPT 47562; principal; 2023-05-03 13:30)
DX: K80.13 Calculus of gallbladder with acute and chronic cholecystitis with obstruction (principal)
CPT/HCPCS: 47562; 36415; 76705; 80053; 80076; 81003; 83690; 85025; 96361; 96374; 96375; 96376; 99222; 99284; G0378; C9113; J0131; J0690; J1100; J1170; J1885; J2175; J2250; J2405; J2704; J3010

== ENCOUNTER → 2024-12-28 11:38 | Outpatient (CLI) | payer SELFPAY ==
[2023-05-03 00:29] VITALS: BMI 33.0
== END ==
PROVIDERS: PCP Family Medicine; Referring Provider Nurse Practitioner Family; Visit Provider Nurse Practitioner Family
DX: J35.1 Hypertrophy of tonsils (principal)
CPT/HCPCS: 87070

== ENCOUNTER → 2025-03-31 09:42 | Outpatient (CLI) | payer OTHER, SELFPAY ==
[2023-05-03 00:29] VITALS: BMI 33.0
--- NOTE | 2025-03-31 09:45 | DI.RAD.S_ITS ---
PROCEDURE: XR LUMBAR SPINE 2-3V INDICATIONS: low back pain TECHNIQUE: 3 views of the lumbar spine were acquired. COMPARISON: None. FINDINGS: Bones: 5 [id number] vertebrae are present. Mild to moderate L4-L5 and L5-S1 disc height loss with adjacent endplate sclerosis and anterior osteophytosis. There is normal bony alignment. No vertebral body compression fractures. No suspicious bony lesions. Soft tissues: Overlying bowel gas pattern is normal. No suspicious soft tissue calcifications. IMPRESSION: Mild degenerative change of the lower lumbar spine without evidence of acute bony abnormality. Dictated by: Wei Granados M.D. on 04/01/2025 at 23:58 Approved by: Wei Granados M.D. on 04/01/2025 at 23:59
== END ==
LOC: RAD 09:44
PROVIDERS: PCP Family Medicine; Referring Provider Nurse Practitioner Family; Visit Provider Nurse Practitioner Family
DX: S39.92XA Unspecified injury of lower back, initial encounter (principal); M47.816 Spondylosis without myelopathy or radiculopathy, lumbar region; M54.9 Dorsalgia, unspecified; X58.XXXA Exposure to other specified factors, initial encounter
CPT/HCPCS: 72100

== ENCOUNTER → 2025-09-07 12:41 | Outpatient (CLI) | payer OTHER, SELFPAY ==
[2023-05-03 00:29] VITALS: BMI 33.0
--- NOTE | 2025-09-07 12:42 | DI.US.S_ITS ---
PROCEDURE: US SOFT TISSUE HEAD AND NECK INDICATIONS: Mass left side of neck TECHNIQUE: Real-time scanning was performed of the neck region of interest, with image documentation. COMPARISON: None. FINDINGS: Multiple lymph nodes are present. Some demonstrate poorly visualized fatty hilum. However, none are considered enlarged by pathologic size criteria. IMPRESSION: Nonspecific appearance of lymph nodes demonstrating loss of fatty hilum although not considered pathologically enlarged. Short interval follow-up is recommended. Dictated by: Belinda Thomas M.D. on 09/08/2025 at 15:22 Approved by: Belinda Thomas M.D. on 09/08/2025 at 15:23
== END ==
LOC: US 12:42
PROVIDERS: PCP Family Medicine; Referring Provider Family Medicine; Visit Provider Nurse Practitioner Family
DX: R22.1 Localized swelling, mass and lump, neck (principal)
CPT/HCPCS: 76536